=== PATIENT | male | born 1960 | race Caucasian/White ===

== ENCOUNTER 2020-06-22 01:51 | Outpatient (CLI) | payer MEDICARE, MEDICAID, SELFPAY ==
[2020-06-22 08:33] LABS: PHENYTOIN (DILANTIN) 9.8 ug/mL (10.0-20.0)
== END 2020-06-22 01:52 | disposition home or self-care (01) ==
PROVIDERS: PCP Family Medicine; Visit Provider Physician Assistant Medical
DX: R56.9 Unspecified convulsions (principal); Z51.81 Encounter for therapeutic drug level monitoring
CPT/HCPCS: 36415; 80185

== ENCOUNTER 2021-10-04 08:07 | Emergency (ER) | payer MEDICARE, MEDICAID, SELFPAY ==
[2021-10-04 08:07] VITALS: BP 148/93; PULSE 87; RESP 16; TEMP 36.8; O2SAT 97
[2021-10-04] MEDS: Lidocaine 5% Patch 1 PATCH TP (08:47)
[2021-10-04] MEDS: Cyclobenzaprine 10 MG TAB PO (08:47)
[2021-10-04] MEDS: Dexamethasone 10 MG/ML VIAL IVP (08:47)
[2021-10-04] MEDS: Ketorolac 15 MG/ML VIAL IM (08:47)
[2021-10-04 08:53] LABS: Bilirubin Negative (Negative); Blood Negative (Negative); Clarity Clear (Clear); Glucose Negative (Negative); Ketones Negative (Negative); Leukocyte Esterase Negative (Negative); Nitrite Negative (Negative); Urobilinogen 0.2 EU/dL (Up TO 0.2)
--- NOTE | 2021-10-04 08:57 | W.ED.GENAD ---
Discharge Plan Disposition Patient Disposition: HOME Condition: Improving Discharge Details Clinical Impression: Back pain Primary Care Provider: Macie Lazaro ED Provider: Julius Babb Home Meds and New Rx's Prescriptions: New lidocaine [Lidoderm] 5 % adhesive patch,medicated 1 patch topical DAILY Qty: 15 0RF Rx Instructions: leave on most painful area for up to 12 hrs cyclobenzaprine 10 mg tablet 10 mg PO HS PRN (Reason: muscle spasm) Qty: 10 0RF No Action multivitamin [Daily Multi-Vitamin] 1 EACH tablet 1 tab PO DAILY phenytoin [Dilantin Infatabs] 50 MG tablet,chewable 300 mg PO HS ergocalciferol (vitamin D2) 50,000 UNIT capsule 50,000 mg PO DIRECTED Label Comments: TAKES Q MONTH ON THE omega 8-olr-amm-fish oil 1 EACH capsule 1,000 mg PO BID tamsulosin [Flomax] 0.4 mg Capsule 0.8 mg PO DAILY Discharge Instructions Instructions: Back Pain (ED) Additional Instructions: Please follow-up with primary care physician. Please return to the emergency department for any worsening symptoms such as extreme pain, change in your ability to walk or stand, issues with bowel or bladder function, change in sensation in your underwear region, or other abnormal symptoms. Medical Decision Making 61-year-old male history of traumatic brain injury presents with atraumatic lower back discomfort that he noticed this morning upon waking up, able to stand however pain with ambulation, no falls, no bowel or bladder issues, afebrile nontoxic no midline spinal tenderness, does have some paraspinal muscular tenderness on palpation in the lumbosacral region, no overlying skin changes; high clinical suspicion for muscle strain/spasm versus early sciatica versus SI joint inflammation patient, no evidence of spinal cord impingement low suspicion for cauda equina spinal epidural abscess or hematoma. Will attempt analgesia and anti-inflammatory. Close reassessment of symptoms and will ambulate patient. If no improvement or unable to ambulate will pursue further labs and imaging otherwise likely home with close follow-up. 10: 37 sinus pressure medications, is able to stand and ambulate with assistance however does have discomfort in his lower back with movement. Will obtain CT lumbar spine. Will administer Ativan for muscle relaxation effect. Pending CT, if normal will be discharged home with walker 12: 55 patient resting comfortably no acute distress. Standing and ambulatory now without assistance. Evidence of disc base narrowing L5-S1 as well as L4 subligamentous density on CT scan. Neurologically intact. Given home care instructions and return precautions. Per patient and caregivers patient does walk with some gait disturbance at baseline due to his traumatic brain injury. Will provide walker for stability. HPI General Date/Time Provider Initiated Documentation: 10/04/21 08:16. HPI Narrative: 61-year-old male history of traumatic brain injurypresents with atraumatic lower back pain that he noticed this morning upon waking up, is here with his correctional case manager and home health aide . Patient was able to stand however did have discomfort radiating from his lower back when attempting to walk. No recent falls. No urinary symptoms. No bowel or bladder issues. Denies any paresthesias or change in sensation in the groin perineum or buttock region. No fevers or chills. No history of kidney stones. Related Data Home Medications Medication Instructions Recorded Confirmed ergocalciferol (vitamin D2) 1,250 50,000 mg PO DIRECTED 12/15/12 10/04/21 mcg (50,000 unit) capsule multivitamin (Daily Multi-Vitamin 1 tab PO DAILY 12/15/12 10/04/21 tablet) omega 1-jyw-dtc-fish oil 300 1,000 mg PO BID 12/15/12 10/04/21 mg-1,000 mg capsule phenytoin 50 mg chewable tablet 300 mg PO HS 12/15/12 10/04/21 (Dilantin Infatabs) cyclobenzaprine 10 mg tablet 10 mg PO HS PRN muscle spasm #10 10/04/21 tabs lidocaine 5 % topical patch 1 patch topical DAILY #15 ea 10/04/21 (Lidoderm) tamsulosin 0.4 mg capsule (Flomax) 0.8 mg PO DAILY 10/04/21 10/04/21 Previous Rx's Medication Instructions Recorded cyclobenzaprine 10 mg tablet 10 mg PO HS PRN muscle spasm #10 10/04/21 tabs lidocaine 5 % topical patch 1 patch topical DAILY #15 ea 10/04/21 (Lidoderm) Allergies Allergy/AdvReac Type Severity Reaction Status Date / Time No Known Allergies Allergy Unverified 10/04/21 08:17 General Stated Complaint: Orthopedic YOLA: 4 Review of Systems Narrative: Review of Systems Constitutional: negative Eyes: negative ENT: negative Cardiovascular: negative Respiratory: negative Gastrointestinal: negative : negative Musculoskeletal: Back pain Skin: negative Neurologic: negative Psych: negative PFSH All Active Problems (Updated 10/04/21 @ 12:57 by Julius Babb MD) Perforated appendicitis (Acute 12/15/12) Laparoscopic appendectomy done by Dr. Mg Todd on History of traumatic brain injury (Chronic) July 2007 Craniosynostosis (Chronic) Hypertension (Chronic) Seizure disorder (Chronic) Back pain (Acute) Medical History (Updated 10/04/21 @ 12:57 by Julius Babb MD) Hypercholesterolemia Seizure disorder STROKE Traumatic brain injury Surgical History (Updated 01/04/13 @ 10:39 by Mya Todd) Appendectomy (12/15/12) Social History Smoking/Tobacco Use Status: Never Smoking risk assessment performed?: Yes Alcohol Intake: former Drug use: Never Substance use type: does not use Do you feel safe at home: Yes Do you feel safe in your relationship?: Yes Exam Narrative Exam Narrative: Physical Examination General: alert, awake, cooperative, resting comfortably, no acute distress HEENT: normocephalic, atraumatic; PERRL, EOM intact, conjunctiva normal; no nasal discharge; moist mucous membranes, oral and pharyngeal mucosa normal, tolerating secretions Neck: supple, trachea midline; full ROM Chest: normal to inspection Respiratory: normal respiratory effort, speaking in full sentences, clear to auscultation, no wheezing, rales or rhonchi Cardiac: regular rate, regular rhythm, S1S2 intact, no murmurs rubs or gallops GI: abdomen soft, non-tender, non-distended; no palpable mass or hepatosplenomegaly Back: No midline spinal tenderness crepitus or deformity, paraspinal lumbosacral muscular tenderness lateral to the midline, no overlying skin changes Skin: no lesions, rashes or trauma appreciated Neuro: AAOx3, normal speech, moving all extremities; 5 out of 5 strength bilateral upper and lower extremities, no truncal ataxia Extremities: No deformity or edema Psych: Appropriate mood and affect Course Vital Signs Vital signs: Vital Signs Temperature 36.8 C 10/04/21 08:07 Pulse 87 10/04/21 08:07 Respiratory Rate 16 10/04/21 08:07 Blood Pressure 148/93 H 10/04/21 08:07 Pulse Oximetry 97 10/04/21 08:07 Temperature 36.8 C 10/04/21 08:07 Temperature Source Temporal Artery Scan 10/04/21 08:07 Pulse 87 10/04/21 08:07 Respiratory Rate 16 10/04/21 08:07 Respiratory Effort Non-Labored 10/04/21 08:10 Blood Pressure 148/93 H 10/04/21 08:07 Blood Pressure Position Sitting 10/04/21 08:07 Pulse Oximetry 97 10/04/21 08:07 Oxygen Delivery Method Room Air 10/04/21 08:07 Oxygen Flow Rate 0 10/04/21 08:07 Pain Level 10 10/04/21 08:10 Comment 10/04/21 08:07 Lab/Test Results Lab/Test Results: Laboratory Tests Range/Units 10/04/21 08:37 Urine Color (Yellow) Yellow Urine Clarity (Clear) Clear Urine pH (5-8) 7.0 Ur Specific [place] (1.005-1.025) 1.020 Urine Protein (Negative) mg/dL Negative Urine Ketones (Negative) mg/dL Negative Urine Blood (Negative) Negative Urine Nitrite (Negative) Negative Urine Bilirubin (Negative) Negative Urine Urobilinogen (Up TO 0.2) EU/dL 0.2 Ur Leukocyte Esterase (Negative) Negative Urine Glucose (Negative) mg/dL Negative
--- NOTE | 2021-10-04 10:15 | DI.CT_ITS ---
Exam(s) CT LUMBAR SPINE WO EXAM: CT LUMBAR SPINE WO CLINICAL HISTORY: atraumatic lower back pain. TECHNIQUE: Imaging Protocol: Axial computed tomography images with coronal and sagittal reformatted images were created and reviewed COMPARISON: CT ABD PELVIS WITH CONTRAST from 12/15/2012 FINDINGS: Bones: There are no fractures, listhesis, nor pars defects. There are no lytic osseous lesions evide nt. INDIVIDUAL LEVELS: T12-L1:No disc herniation nor canal stenosis. Facet joints unremarkable. No foraminal stenosis. L1-2: No disc herniation nor canal stenosis. Facet joints unremarkable. No foraminal stenosis. L2-3: No disc herniation nor canal stenosis. Facet joints unremarkable. No Foraminal stenosis L3-4: Normal disc height but there is vacuum phenomenon within the mid disc space. Mild annular bul ging without a disc herniation. Central canal dimensions are normal. No obvious foraminal stenosis. L4-5: Normal disc height. Central annular bulging noted with what appears to be indentation of the anterior thecal sac centrally but above the disc space. This may be related to a migrated disc fragm ent at this level. This mildly compresses the anterior aspect of the thecal sac resulting in mild ce ntral spinal canal stenosis at this level. L5-S1: This level exhibits advanced disc space narrowing and vacuum phenomenon. Mild symmetrical an nular bulging. No dominant disc herniation. Central canal dimensions are lower normal. There is bi lateral vertical foraminal stenosis. Mild facet joint degenerative changes. The visualized sacroiliac joints and sacrum appear unremarkable. PARASPINAL SOFT TISSUES: IVC filter noted Calcified but nondilated abdominal aorta and common iliac arteries. IMPRESSION: 1. There is advanced disc space narrowing at L5-S1 level. Although there is no disc herniation or ce ntral canal stenosis at this level there is an element of bilateral vertical foraminal stenosis where by the exiting nerve roots bilaterally are in penis between the underlying annulus and overlying L5 pedicles. 2. Subligamentous density behind L4 vertebral body may be migrated disc fragment from L4-5 level. Di fficult to assess on CT scan. If clinically indicated follow-up MRI can be performed for added sensi tivity and specificity. 3. RADIATION DOSE DELIVERED: 1,017.22mGy.cm Total DLP DATA REPOSITORY: All CT scans at this facility are submitted to the National Radiology Data Registry (NRDR) Dose Index Registry (DIR) with the [employer] ([employer]). RADIATION OPTIMIZATION: All CT scans at this facility use at least one of these dose optimization te chniques: automated exposure control; mA and/or kV adjustment per patient size (includes targeted exa ms where dose is matched to clinical indication); or iterative reconstruction.
[2021-10-04] MEDS: LORazepam 0.5 MG TAB PO (10:43)
== END 2021-10-04 13:30 | disposition home or self-care (01) ==
PROVIDERS: Emergency Provider Emergency Medicine; PCP Family Medicine
DX: M48.07 Spinal stenosis, lumbosacral region (principal); Z86.73 Personal history of transient ischemic attack (TIA), and cerebral infarction without residual deficits
CPT/HCPCS: 96372; 96374; 99284; 72131; 81003; J1100; J1885

== ENCOUNTER 2023-06-10 05:38 | Outpatient (CLI) | payer MEDICARE, MEDICAID, SELFPAY ==
[2023-06-10 08:52] LABS: ALT 32 U/L (16-63); AST 15 U/L (15-37); Albumin 4.2 g/dL (3.4-5.0); Alkaline Phosphatase 116 U/L (46-116); Anion Gap 9.1 mmol/L (3-11); BUN 16 mg/dL (7-18); Bilirubin, Total 0.4 mg/dL (0.2-1.0); CO2 29.9 mmol/L (21.0-32.0); Calcium 8.8 mg/dL (8.5-10.1); Chloride 104 mmol/L (98-107); Estimated GFR 86.16 (mL/min/1.73m2); Glucose 112 mg/dL (74-106); Potassium 4.5 mmol/L (3.5-5.1); Sodium 143 mmol/L (136-145); Total Protein 7.5 g/dL (6.4-8.2)
== END 2023-06-10 05:39 | disposition home or self-care (01) ==
PROVIDERS: PCP Physician Assistant Medical; Visit Provider Physician Assistant Medical
DX: R73.9 Hyperglycemia, unspecified (principal)
CPT/HCPCS: 36415; 80053

== ENCOUNTER → 2023-06-25 12:39 | Outpatient (BNVA) | payer MEDICARE, MEDICAID, SELFPAY | PROVIDERS: PCP Physician Assistant Medical; Referring Provider Physician Assistant Medical; Visit Provider Psychiatry & Neurology Neurology | DX: G40.909 Epilepsy, unspecified, not intractable, without status epilepticus (principal); E53.8 Deficiency of other specified B group vitamins; Z87.820 Personal history of traumatic brain injury | CPT/HCPCS: 99215; G2212 ==

== ENCOUNTER 2023-07-01 05:00 | Outpatient (CLI) | payer MEDICARE, MEDICAID, SELFPAY ==
[2023-07-01 08:27] LABS: ALT 30 U/L (16-63); AST 15 U/L (15-37); Albumin 4.1 g/dL (3.4-5.0); Alkaline Phosphatase 118 U/L (46-116); BUN 15 mg/dL (7-18); Bilirubin, Total 0.3 mg/dL (0.2-1.0); Calcium 8.9 mg/dL (8.5-10.1); Chloride 104 mmol/L (98-107); Estimated GFR 86.16 (mL/min/1.73m2); Glucose 84 mg/dL (74-106); Sodium 140 mmol/L (136-145); Total Protein 7.2 g/dL (6.4-8.2)
[2023-07-01 08:31] LABS: Hemoglobin A1C 5.5 % (<5.7)
== END 2023-07-01 05:01 | disposition home or self-care (01) ==
PROVIDERS: PCP Physician Assistant Medical; Visit Provider Physician Assistant Medical
DX: R73.9 Hyperglycemia, unspecified (principal)
CPT/HCPCS: 36415; 80053; 83036

== ENCOUNTER → 2023-08-27 12:14 | Outpatient (BNVA) | payer MEDICARE, MEDICAID, SELFPAY | PROVIDERS: PCP Physician Assistant Medical; Referring Provider Physician Assistant Medical; Visit Provider Psychiatry & Neurology Neurology | DX: G40.909 Epilepsy, unspecified, not intractable, without status epilepticus (principal); E53.8 Deficiency of other specified B group vitamins; Z87.820 Personal history of traumatic brain injury | CPT/HCPCS: 99214 ==

== ENCOUNTER → 2023-11-26 13:05 | Outpatient (BNVA) | payer MEDICARE, MEDICAID, SELFPAY | PROVIDERS: PCP Physician Assistant Medical; Referring Provider Physician Assistant Medical; Visit Provider Psychiatry & Neurology Neurology | DX: G40.909 Epilepsy, unspecified, not intractable, without status epilepticus (principal); Z87.820 Personal history of traumatic brain injury; E53.8 Deficiency of other specified B group vitamins | CPT/HCPCS: 99213 ==

== ENCOUNTER → 2024-05-11 08:48 | Outpatient (BNVA) | payer MEDICARE, MEDICAID, SELFPAY | PROVIDERS: PCP Physician Assistant Medical; Referring Provider Physician Assistant Medical; Visit Provider Podiatrist | DX: L60.3 Nail dystrophy (principal); M79.671 Pain in right foot; M79.672 Pain in left foot; L60.0 Ingrowing nail; Z87.820 Personal history of traumatic brain injury; E53.8 Deficiency of other specified B group vitamins; E55.9 Vitamin D deficiency, unspecified | CPT/HCPCS: 11721; 11750; 99214 ==

== ENCOUNTER → 2024-06-02 09:32 | Outpatient (BNVA) | payer MEDICARE, MEDICAID, SELFPAY | PROVIDERS: PCP Physician Assistant Medical; Referring Provider Physician Assistant Medical; Visit Provider Podiatrist | DX: L03.032 Cellulitis of left toe (principal); L60.0 Ingrowing nail; B35.1 Tinea unguium; L60.3 Nail dystrophy; M79.671 Pain in right foot; M79.672 Pain in left foot; B96.89 Other specified bacterial agents as the cause of diseases classified elsewhere | CPT/HCPCS: 99214 ==

== ENCOUNTER 2024-06-02 10:16 | Outpatient (REF) | payer MEDICARE, MEDICAID, SELFPAY | END 2024-06-02 10:17 | disposition home or self-care (01) | LOC: LBN 10:16 | PROVIDERS: PCP Physician Assistant Medical; Visit Provider Podiatrist | DX: L03.90 Cellulitis, unspecified (principal) | CPT/HCPCS: 87070; 87075; 87205 ==

== ENCOUNTER → 2024-10-12 08:37 | Outpatient (BNVA) | payer MEDICARE, MEDICAID, SELFPAY | PROVIDERS: PCP Physician Assistant Medical; Referring Provider Physician Assistant Medical; Visit Provider Podiatrist | DX: L60.0 Ingrowing nail (principal); B35.1 Tinea unguium; L60.3 Nail dystrophy; M79.671 Pain in right foot; M79.672 Pain in left foot | CPT/HCPCS: 99213 ==

== ENCOUNTER → 2024-12-01 13:15 | Outpatient (BNVA) | payer MEDICARE, MEDICAID, SELFPAY | PROVIDERS: PCP Physician Assistant Medical; Referring Provider Physician Assistant Medical; Visit Provider Psychiatry & Neurology Neurology | DX: G40.909 Epilepsy, unspecified, not intractable, without status epilepticus (principal); Z87.820 Personal history of traumatic brain injury; E53.8 Deficiency of other specified B group vitamins; R26.9 Unspecified abnormalities of gait and mobility; I10 Essential (primary) hypertension | CPT/HCPCS: 99214 ==